=== PATIENT | male | born 1950 | race American Indian/Alaskan Native ===

== ENCOUNTER 2025-03-10 07:08 | Emergency (ER) | payer MEDICARE, BC ==
[2025-03-10] MEDS: Doxycycline 100 MG Cap PO ONE (08:08)
== END 2025-03-10 08:09 | disposition home or self-care (01) ==
LOC: JP.ED 07:08
DX: S80.862A Insect bite (nonvenomous), left lower leg, initial encounter (principal); I25.2 Old myocardial infarction; Z95.5 Presence of coronary angioplasty implant and graft; Z79.82 Long term (current) use of aspirin; Z79.02 Long term (current) use of antithrombotics/antiplatelets; Z79.899 Other long term (current) drug therapy; F17.200 Nicotine dependence, unspecified, uncomplicated; W57.XXXA Bitten or stung by nonvenomous insect and other nonvenomous arthropods, initial encounter; Y93.89 Activity, other specified
CPT/HCPCS: 99281; A9270